=== PATIENT | female | born 1975 | race Caucasian/White ===

== ENCOUNTER 2018-08-31 19:31 | Emergency (ER) | payer OTHER ==
[2018-08-31 19:44] VITALS: TEMP 98.9
[2018-08-31] MEDS ORDERED: LIDOCAINE VISCOUS 2% ORAL/TOP 20 ML UNIT-DOSE CUP MM ONE (19:45)
[2018-08-31] MEDS ORDERED: SODIUM CHLORIDE 0.9% 500 ML INFUS.BAG IV ONE (19:45)
[2018-08-31] MEDS ORDERED: FAMOTIDINE 20 MG/50 ML IVPB 20 MG/50 ML MG IVPB ONE ×2 (19:45→20:04)
[2018-08-31] MEDS ORDERED: MAG HYDROX/AL HYDROX/SIMETH -MYLANTA- ORAL SUSPENSION PO ONE (19:45)
[2018-08-31] MEDS ORDERED: ONDANSETRON 4 MG/2 ML VIAL IVPUSH ONE (19:46)
[2018-08-31] MEDS ORDERED: MAG HYDROX/AL HYDROX/SIMETH 30 ML UNIT-DOSE CUP ONE (20:04)
[2018-08-31] MEDS ORDERED: ONDANSETRON 4 MG/2 ML VIAL ONE (20:05)
[2018-08-31] MEDS ORDERED: LIDOCAINE VISCOUS 2% ORAL/TOP 20 ML UNIT-DOSE CUP ONE (20:05)
[2018-08-31 20:07] VITALS: BMI 25.6
--- NOTE | 2018-08-31 20:20 | PDOC ---
Documentation entered by Lvei Zaragoza SCRIBE, acting as scribe for Miryam Logan MD. Miryam Logan MD: This documentation has been prepared by the Mila jimenez Elijah, SCRIBE, under my direction and personally reviewed by me in its entirety. I confirm that the documentation accurately reflects all work, treatment, procedures, and medical decision making performed by me. History of Present Illness - General Chief Complaint: Pain Stated Complaint: SQUEEZING EPIGASTRIC PAIN History Source: Patient Exam Limitations: No Limitations - History of Present Illness Initial Comments: 08/31/18 19:46 Patient is a 43 year old female with no reported significant past medical history who presents to the ED with intermittent epigastric abdominal pain beginning this morning. AP described as "squeezing," radiates across the lower abdominal, saavedra in the mid-abdomen and is waxing and waning with 10/10 being the worst and 7/10 currently. The Patient notes the pain worsens with lying down and associates some nausea, CP, SOB, sweating and headache. no precipitating or alleviating factors. has taken tylenol, advil, tums - all without relief. A year ago, the patient had similar epigastric pain, was seen by her GI Dr Saeed, received an endoscopy, which was unremarkable per her report, no infection, no ulcers. Denies fever, chills, V, D, bladder and bowel problems, leg swelling, No sick contacts or travel. No new changes in medications. No suspicious food intake Allergies: NKA Past Medical History: as documented in EMR/HPI Social history: Lives with family. No tobacco, ETOH or drug use. Surgical history: 3 C-Sections PCP: Dr. An GI: Dr. Saeed 08/31/18 20:13 Past History - Past Medical History Allergies/Adverse Reactions: Allergies Allergy/AdvReac Type Severity Reaction Status Date / Time No Known Allergies Allergy Unverified 08/31/18 19:36 Home Medications: Ambulatory Orders NK [No Known Home Medication] 08/31/18 Review of Systems - Review of Systems Comments:: 08/31/18 19:52 Constitutional: +Diaphoresis, no fevers or chills. no appetite change. HEENT: +headache. No congestion. No visual/hearing disturbances. CVS: +cp, no palp, No syncope. Resp: +sob. No cough. Gastrointestinal: +abdominal pain +nausea No vomiting. no diarrhea. Genitourinary: no urinary sx, hematuria. no urgency/frequency, dysuria. MUSCULOSKELETAL: No joint pain and swelling. No neck or back pain. SKIN: no redness or skin changes, no discharge, no rash. No wounds. Hematologic: no easy bruising/bleeding. NEUROLOGIC: +headache No dizziness, LOC or altered mental status. No weakness, numbness or tingling. Psych: no anxiety or depression Allergic/Immunologic: no allergies All other systems reviewed and negative, or as documented in HPI. 08/31/18 20:16 *Physical Exam - Vital Signs Last Vital Signs Temp Pulse Resp BP Pulse Ox 98.9 F 75 16 130/81 100 08/31/18 19:54 08/31/18 19:54 08/31/18 19:54 08/31/18 19:54 08/31/18 19:54 - Physical Exam Comments: 08/31/18 19:46 General: Well appearing, awake and alert, NAD. HEENT: NCAT, PERRL, EOMI, clear conjunctiva, anicteric, moist mucus membranes, clear oropharynx, no oral lesions.. Neck: neck supple, FROM Resp: CTAB, normal and even respirations, no respiratory distress CVS: RRR, no murmurs, 2+ peripheral pulses throughout, no peripheral edema Abdomen: +Epigastric Tenderness. No McBurneys/ Snyder's Tenderness, Nondistended , no peritoneal signs. normoactive BS. no CVAT. Back: nontender, normal inspection and ROM MSK: no edema, VIVEROS x4, ROM intact. No clubbing or cyanosis. normal bulk and tone. Neuro: alert Psych: calm and cooperative Skin: warm and well perfused, cap refill <2 sec, normal color 08/31/18 20:17 Heart Score/ECG Review #1 ECG reviewed & interpreted by me at: 20:10 General ECG Interpretation: Sinus Rhythm, Normal Rate, Normal Intervals Compared to previous ECG there are: Previous ECG unavail 08/31/18 20:19 EKG normal sinus rhythm at 69 bpm, no interval abnormalities, narrow QRS, ST and T wave segments and morphology normal with upsloping ST segments and no reciprocal depressions. appears like benign early repolarization. ED Treatment Course - LABORATORY CBC & Chemistry Diagram: 08/31/18 20:19 08/31/18 20:19 Medical Decision Making - Medical Decision Making 08/31/18 20:17 See HPI for details. Prior notes reviewed, including admissions, discharges and consultations. Vital signs reviewed, wnl. DDx abdominal pain: Renal colic, biliary colic, metabolic/electrolyte derangements. GERD, PUD, esophageal spasm, pancreatitis, hepatitis, constipation , colitis, gastroenteritis, cholecystitis, UTI, pyelonephritis, ileus, SBO, medication side effect, hernia, appendicitis, diverticulitis, msk strain laboratory results and imaging reviewed, basic labs and lytes wnl, notable for_ . LFTs/lipase_wnl UA_neg preg test no urinary sx to suggest UTI EKG normal sinus rhythm at 69 bpm, no interval abnormalities, narrow QRS, ST and T wave segments and morphology normal with upsloping ST segments and no reciprocal depressions. ED course -interventions: IVF, zofran, pepcid, maalox/viscous lido 08/31/18 21:05 - clinically improved, PO challenged. rx zofran, supportive care, hydration and avoid triggers Pt to be discharged in stable condition. Patient and family made aware of clinical impression, treatment recommendations and disposition plan, return precautions discussed (including but not limited to new or persistent/worsening symptoms, pain, fevers, or signs of infection, chest pain, respiratory distress , inability to tolerate oral intake, dehydration, syncope, or neurologic changes ). Follow up with PMD and/or GI specialist as recommended, follow up information provided, take medications as instructed for duration of time. continue with supportive care, avoid triggers and precipitants. All questions answered to patient's satisfaction and expressed understanding and comfort with this. At the time of discharge, the patient is alert, clinically improved, tolerating po and verbalizes understanding of instructions, satisfied with the care received and felt comfortable with the plan. Patient does not suffer from an acute life-threatening medical condition at this time and is safe for outpatient follow-up. *DC/Admit/Observation/Transfer Diagnosis at time of Disposition: Epigastric abdominal pain - Discharge Dispostion Disposition: HOME Condition at time of disposition: Stable Decision to Admit order: No - Referrals Referrals: Flori Arreguin MD [Primary Care Provider] - - Patient Instructions Printed Discharge Instructions: DI for Abdominal Pain-Adult Additional Instructions: 1) Please follow-up with your primary care doctor in the next 1-2 days. Please call tomorrow for for any urgent issues. you should also follow up with your tinsel machine operator as well. who previously performed endoscopy which was normal. 2) You were given a copy of the tests performed today. Please bring the results with you and review them with your primary care doctor. Your laboratory results were normal 3) If you have any worsening of symptoms or any other concerns please return to the ED immediately. Return if worsening symptoms including fevers, headache, vomiting, visual or hearing disturbances, abdominal pain, chest pain, shortness of breath, syncope, dehydration, inability to take things by mouth/vomiting, altered mental status, or worsening concerning symptoms. 4) Please continue taking your home medications as directed. your medications on discharge include pepcid twice daily for 2 weeks and maalox or mylanta every 6 hours with meals for reflux and abdominal pain, both of which are available over the counter. . side effects may include upset stomach, abdominal pain, vomiting, or diarrhea. do not drink alcohol with your medications. avoid food triggers or precipitants. including spicy or fatty foods, chocolate, alcohol. Stay well hydrated and rest adequately. Make an appointment. If you cannot follow-up with your primary care doctor/GI specialist and worsening/persistent symptoms despite therapy, please return to the ED - Post Discharge Activity
[2018-08-31 20:29] LABS: BASO % 0.7 % (0-2.0); EOS % 1.4 % (0-4.5); HEMATOCRIT 40.7 % (32.4-45.2); HEMOGLOBIN 13.8 GM/dl (10.7-15.3); LYMPH % 31.8 % (8-40); MCH 31.3 pg (25.7-33.7); MCHC 33.9 g/dl (32.0-36.0); MEAN CELL VOLUME 92.5 fl (80-96); MEAN PLT VOLUME 8.1 fl (7.5-11.1); MONO % 7.2 % (3.8-10.2); NEUT % 58.9 % (42.8-82.8); PLATELET COUNT 333 K/MM3 (134-434); WHITE BLOOD COUNT 7.2 K/mm3 (4.0-10.8)
[2018-08-31 20:49] LABS: ALBUMIN 4.5 g/dl (3.4-5.0); BILIRUBIN,TOTAL 0.3 mg/dl (0.2-1); CALCIUM 9.6 mg/dl (8.5-10); CREATININE 0.8 mg/dl (0.55-1.3); POTASSIUM 4.4 mmol/L (3.5-5.1); TOT PROT 7.3 g/dl (6.4-8.2)
[2018-08-31 21:25] VITALS: BP 103/65; PULSE 65
--- NOTE | 2018-09-01 15:22 | EKG ---
Test Reason : Blood Pressure : / mmHG Vent. Rate : 069 BPM Atrial Rate : 069 BPM P-R Int : 128 ms QRS Dur : 078 ms QT Int : 386 ms P-R-T Axes : 118 065 060 degrees QTc Int : 413 ms POOR DATA QUALITY, INTERPRETATION MAY BE ADVERSELY AFFECTED NORMAL SINUS RHYTHM NORMAL ECG NO PREVIOUS ECGS AVAILABLE Confirmed by GELY MARISCAL MD ([id number]) on 09/01/2018 3:22:44 PM Referred By: MD NIELSEN Confirmed By:GELY MARISCAL MD
== END 2018-08-31 21:27 | disposition home or self-care (01) ==
LOC: FER 19:31
PROC: 3E033GC Introduction of Other Therapeutic Substance into Peripheral Vein, Percutaneous Approach (ICD-10-PCS; principal; 2018-08-31)
PROC: 3E0337Z Introduction of Electrolytic and Water Balance Substance into Peripheral Vein, Percutaneous Approach (ICD-10-PCS; 2018-08-31)
DX: R10.13 Epigastric pain (principal)
CPT/HCPCS: 36415; 80053; 83690; 84703; 85025; 93005; 99283-25

== ENCOUNTER 2019-11-25 15:37 | Emergency (ER) | payer OTHER ==
[2019-11-25 15:43] VITALS: BP 135/84; BMI 25.6
--- OUTSIDE RECORDS SUMMARY | 2019-11-25 15:46 | XMS ---
:1975 Author Organization [facility] Care Team Providers Name Role Phone Hussein Bolden Unavailable Unavailable Re-disclosure Warning The records that you are about to access may contain information from federally- assisted alcohol or drug abuse programs. If such information is present, then the following federally mandated warning applies: This information has been disclosed to you from records protected by federal confidentiality rules (42 CFR part 2). The federal rules prohibit you from making any further disclosure of this information unless further disclosure is expressly permitted by the written consent of the person to whom it pertains or as otherwise permitted by 42 CFR part 2. A general authorization for the release of medical or other information is NOT sufficient for this purpose. The Federal rules restrict any use of the information to criminally investigate or prosecute any alcohol or drug abuse patient.The records that you are about to access may contain highly sensitive health information, the redisclosure of which is protected by Article 27-F of the [facility] Public Health law. If you continue you may haveaccess to information: Regarding HIV / AIDS; Provided by facilities licensed or operated by the [facility] Office of Mental Health; or Provided by the [facility] Office for People With Developmental Disabilities. If such information is present, then the following [facility] mandated warning applies: This information has been disclosed to you from confidential records which are protected by state law. State law prohibits you from making any further disclosure of this information without the specific written consent of the person to whom it pertains, or as otherwise permitted by law. Any unauthorized further disclosure in violation of state law may result in a fine or fpc sentence or both. A general authorization for the release of medical or other information is NOT sufficient authorization for further disclosure. Encounters Encounter Providers Location Date Indications Data Source(s ) Outpatient Attender: Hussein 03/01/2018 EPIGASTRIC PAIN [facility] 11:54:00 AM Hospital EST - 03/01/2018 11:55:00 AM EST EPIGASTRIC PAIN Insurance Providers Payer name Policy type Policy ID Covered Covered democrat's Policy P maureen / Coverage democrat ID relationship to [employer] Inf ormation type castellanos MVP ESSENTIAL [id number] SP [id number] PLAN 1 2 MVP ESSENTIAL [id number] PT [id number] PLAN 2 MVP ESSENTIAL [id number] PT [id number] PLAN 3 MVP ESSENTIAL [id number] SP [id number] PLAN 1 2 SELF PAY SP INSURANCE Results ID Date Data Source [id number] 05/24/2019 12:00:00 AM EDT [facility] Name Value Range Interpretation Code Description [facility] Supporting Document[facility]s ) 2019-nCoV [facility] RNA XXX NAHID+probe- Imp This lab was ordered by [facility]Jerica HICKMAN and reported by [employer] Procedure
[2019-11-25] MEDS ORDERED: MAG HYDROX/AL HYDROX/SIMETH 30 ML UNIT-DOSE CUP PO ONE (15:50)
[2019-11-25] MEDS ORDERED: FAMOTIDINE 20 MG/50 ML IVPB 20 MG/50 ML MG IVPB ONE ×2 (15:50→16:35)
[2019-11-25] MEDS ORDERED: ONDANSETRON 4 MG/2 ML VIAL IVPB ONE (15:50)
[2019-11-25] MEDS ORDERED: SODIUM CHLORIDE 1,000 ML IV STA (15:50)
--- NOTE | 2019-11-25 15:58 | PDOC ---
History of Present Illness - General Chief Complaint: Pain Stated Complaint: sharp back pain, throbbing abdominal pain Time Seen by Provider: 11/25/19 15:41 - History of Present Illness Initial Comments: 11/25/19 15:54 44 F with no PMH presents to ED with 1 month of abdominal discomfort. Pt states that she has been having pain in her upper abdomen x 1 month. She initially went to see her PMD, who did labs and told her that she had elevated liver enzymes. In addition to pain, pt endorses nausea without vomiting. No F/C. Over the past 48 hours, pt has noted increase in pain and radiation of pain towards her back. Denies flank pain. Denies dysuria. Denies diarrhea/constipation. Past History - Medical History Allergies/Adverse Reactions: Allergies Allergy/AdvReac Type Severity Reaction Status Date / Time No Known Allergies Allergy Verified 06/08/19 11:37 Home Medications: Ambulatory Orders Esomeprazole Magnesium [Nexium 24Hr] 20 mg PO DAILY #30 capsule. 11/25/19 COPD: No - Reproductive History Is Patient Now?: No - Psycho-Social/Smoking History Smoking History: Never smoked Have you smoked in the past 12 months: No Information on smoking cessation initiated: No - Substance Abuse Hx (Audit-C & DAST Scrn) How often the patient has a drink containing alcohol: Never Score: In Men: 4 or > Positive; In Women: 3 or > Positive: 0 Screen Result (Pos requires Nsg. Audit-10AR): Negative In the last yr the pt used illegal drug/Rx for NonMed reason: No Score: Yes response is considered Positive: 0 Screen Result (Positive result requires Nsg. DAST-10): Negative Review of Systems - Review of Systems Comments:: 11/25/19 15:56 "GENERAL/CONSTITUTIONAL: No fever or chills. No weakness. HEAD, EYES, EARS, NOSE AND THROAT: No change in vision. No ear pain or discharge. No sore throat. CARDIOVASCULAR: No chest pain, no shortness of breath, no loss of consciousness RESPIRATORY: No cough, wheezing, or hemoptysis. GASTROINTESTINAL: + abdominal pain, + nausea, No vomiting, diarrhea or constipation. GENITOURINARY: No dysuria, frequency, or change in urination. MUSCULOSKELETAL: No joint or muscle swelling or pain. No neck or back pain. SKIN: No rash NEUROLOGIC: No vertigo, no change in strength/sensation. ENDOCRINE: No increased thirst. No abnormal weight change. HEMATOLOGIC/LYMPHATIC: No anemia, easy bleeding, or history of blood clots. ALLERGIC/IMMUNOLOGIC: No hives or skin allergy. *Physical Exam - Vital Signs Last Vital Signs Temp Pulse Resp BP Pulse Ox 135/84 100 11/25/19 15:38 11/25/19 15:38 - Physical Exam 11/25/19 15:56 "GENERAL: Awake, alert, and fully oriented, in no acute distress. HEAD: No signs of trauma EYES: PERRLA, EOMI, sclera anicteric, conjunctiva clear ENT: Auricles normal inspection, hearing grossly normal, nares patent, oropharynx clear without exudates. Moist mucosa NECK: Nontender, no stepoffs, Normal ROM, supple, no lymphadenopathy, JVD, or masses LUNGS: Breath sounds equal, clear to auscultation bilaterally. No wheezes, and no crackles HEART: Regular rate and rhythm, normal S1 and S2, no murmurs, rubs or gallops ABDOMEN: + RUQ and epigastric TTP, normoactive bowel sounds. No guarding, no rebound. No masses EXTREMITIES: Normal range of motion, no edema. No clubbing or cyanosis. No cords, erythema, or tenderness NEUROLOGICAL: Cranial nerves II through XII intact. 5/5 strength and sensation in all extremities, Normal speech, normal gait, normal cerebellar function SKIN: Warm, Dry, normal turgor, no rashes or lesions noted. ED Treatment Course - LABORATORY CBC & Chemistry Diagram: 11/25/19 16:31 11/25/19 16:54 - RADIOLOGY Radiology Studies Ordered: Category Date Time Status ABDOMEN US -LIMITED [US] Stat Ultrasound 11/25/19 15:50 Ordered Medical Decision Making - Medical Decision Making 11/25/19 15:57 44 F with abdominal pain and nausea. Had labs 1 month ago showing elevated LFTs. Will evaluate for biliary colic with US. - Labs - RUQ sono - GI cocktail 11/25/19 18:30 Labs wnl US negative Pt reassessed - pain improved with meds Pt is well appearing, with normal vitals. Clinically stable for DC at this time. I discussed the physical exam findings, ancillary test results and final diagnoses with the patient. I answered all of the patient's questions. The patient was satisfied with the care received and felt comfortable with the discharge plan and treatment plan. The patient agrees to follow up with the primary care physician within 24-72 hours. Discharge - Discharge Information Problems reviewed: Yes Clinical Impression/Diagnosis: Nausea, Abdominal pain, Gastritis Condition: Stable Disposition: HOME - Additional Discharge Information Prescriptions: Esomeprazole Magnesium [Nexium 24Hr] 20 mg PO DAILY #30 capsule.dr - Follow up/Referral Referrals: Kumar Arndt MD [Staff Physician] - - Patient Discharge Instructions Additional Instructions: Your ultrasound and bloodwork today were normal. Your pain may be due to gastritis (inflammation of the stomach) or stomach ulcers. Take the nexium as prescribed. Follow up with a sales enablement analyst as soon as possible to have your pain further evaluated. You may need an endoscopy. Call the number provided to make an appointment. If you experience worsening pain, pain in your lower abdomen, vomiting, fevers, or any other concerning symptoms, return to the ER immediately. - Post Discharge Activity
[2019-11-25 16:21] LABS: HCG,QUALITATIVE URINE Negative
[2019-11-25 16:35] LABS: HEMATOCRIT 38.1 % (32.4-45.2); HEMOGLOBIN 12.5 GM/dl (10.7-15.3)
[2019-11-25] MEDS ORDERED: MAG HYDROX/AL HYDROX/SIMETH 30 ML UNIT-DOSE CUP ONE (16:35)
[2019-11-25] MEDS ORDERED: ONDANSETRON 4 MG/2 ML VIAL ONE (16:35)
[2019-11-25 16:41] LABS: MCH 30.6 pg (25.7-33.7); MCHC 32.9 g/dl (32.0-36.0); MEAN CELL VOLUME 93.2 fl (80-96); MEAN PLT VOLUME 8.9 fl (7.5-11.1); PLATELET COUNT 273 K/MM3 (134-434); RBC 4.09 M/mm3 (3.60-5.2); WHITE BLOOD COUNT 6.4 K/mm3 (4.0-10.8)
[2019-11-25 16:54] LABS: ALBUMIN 4.2 g/dl (3.4-5.0); BILIRUBIN,TOTAL 0.5 mg/dl (0.2-1); CALCIUM 8.9 mg/dl (8.5-10); CREATININE 0.7 mg/dl (0.55-1.3); POTASSIUM 4.3 mmol/L (3.5-5.1); TOT PROT 6.9 g/dl (6.4-8.2)
[2019-11-25 17:01] LABS: EPITHELIAL CELLS FEW /hpf
== END 2019-11-25 18:46 | disposition home or self-care (01) ==
LOC: FER 15:37
PROC: 3E033GC Introduction of Other Therapeutic Substance into Peripheral Vein, Percutaneous Approach (ICD-10-PCS; principal; 2019-11-25)
PROC: 3E0337Z Introduction of Electrolytic and Water Balance Substance into Peripheral Vein, Percutaneous Approach (ICD-10-PCS; 2019-11-25)
DX: R11.0 Nausea (principal); R10.9 Unspecified abdominal pain; K29.70 Gastritis, unspecified, without bleeding
CPT/HCPCS: 36415; 76700-TC; 80053; 81003; 81015; 83690; 84703; 85027; 99284-25

== ENCOUNTER 2020-04-06 10:57 | Emergency (ER) | payer OTHER | END 2020-04-06 13:31 | disposition home or self-care (01) | LOC: JVIRT 10:57 | DX: Z11.52 Encounter for screening for COVID-19 (principal) | CPT/HCPCS: C9803; G2251-GT; U0003 ==

== ENCOUNTER 2020-05-19 19:01 | Emergency (ER) | payer OTHER ==
[2020-05-21 10:09] LABS: SARS-CoV-2 NAA Not Detected (Not Detected)
== END 2020-05-19 21:23 | disposition home or self-care (01) ==
LOC: JVIRT 19:01
DX: Z20.822 Contact with and (suspected) exposure to COVID-19 (principal)
CPT/HCPCS: C9803; G2251-GT; Q3014-GT; U0003; U0005

== ENCOUNTER 2021-02-06 09:36 | Emergency (ER) | payer OTHER ==
[2021-02-06] MEDS ORDERED: SODIUM CHLORIDE 1,000 ML IV ONE (09:52)
[2021-02-06 09:59] VITALS: BP 112/69; BMI 144.5
[2021-02-06] MEDS ORDERED: ACETAMINOPHEN 325 MG TABLET (FP) PO ONE (10:05)
[2021-02-06 10:15] LABS: HCG,QUALITATIVE URINE Negative
[2021-02-06] MEDS ORDERED: ACETAMINOPHEN 325 MG TABLET (FP) ONE (10:26)
[2021-02-06 11:15] LABS: ALBUMIN 4.2 g/dl (3.4-5.0); BILIRUBIN,TOTAL 0.4 mg/dl (0.2-1); CALCIUM 9.3 mg/dl (8.5-10); CREATININE 0.7 mg/dl (0.55-1.3)
[2021-02-06 11:50] LABS: BASO % 1.1 % (0-2.0); EOS % 1.7 % (0-4.5); HEMATOCRIT 37.7 % (32.4-45.2); HEMOGLOBIN 12.7 GM/dL (10.7-15.3); LYMPH % 31.9 % (8-40); MCH 30.8 pg (25.7-33.7); MCHC 33.7 g/dl (32.0-36.0); MEAN CELL VOLUME 91.4 fl (80-96); MEAN PLT VOLUME 7.9 fl (7.5-11.1); MONO % 7.5 % (3.8-10.2); NEUT % 57.8 % (42.8-82.8); PLATELET COUNT 313 10^3/uL (134-434); RBC 4.12 M/mm3 (3.60-5.2); RDW 12.7 % (11.6-15.6); WHITE BLOOD COUNT 4.8 K/mm3 (4.0-10.0)
== END 2021-02-06 15:33 | disposition home or self-care (01) ==
LOC: FER 09:36
PROC: 3E0337Z Introduction of Electrolytic and Water Balance Substance into Peripheral Vein, Percutaneous Approach (ICD-10-PCS; principal; 2021-02-06)
DX: R00.2 Palpitations (principal); M79.605 Pain in left leg
CPT/HCPCS: 36415; 71046-TC-FY; 80053; 81003; 81015; 82550; 82553; 84484; 84703; 85025; 85379; 93005; 93971-TC; 96360; 99285-25; C9803; U0003; U0005